=== PATIENT | female | born 1975 | race Caucasian/White ===

== ENCOUNTER → 2017-02-12 | Outpatient (CLI) | payer OTHER | LOC: FIMAGING 09:03 | PROVIDERS: ATTEND Physician Assistant Medical | DX: N63 Unspecified lump in breast (principal) | CPT/HCPCS: G0204 ==

== ENCOUNTER → 2018-02-09 | Outpatient (CLI) | payer OTHER | LOC: FIMAGING 15:55 | PROVIDERS: ATTEND Physician Assistant Medical | DX: Z12.31 Encounter for screening mammogram for malignant neoplasm of breast (principal) ==

== ENCOUNTER → 2019-03-23 | Outpatient (CLI) | payer OTHER | LOC: FIMAGING 12:33 ==